=== PATIENT | male | born 1955 | race Caucasian/White ===

== ENCOUNTER → 2016-08-13 | Outpatient (CLI) | payer OTHER ==
[~2016-08-13] MED LIST: ASPI-496 PO; CHONDROITIN PO; FISH OIL PO; LORA10TA72 PO; MULT-412 PO; VITAMIN C PO
[2016-08-13 16:45] LABS: HEMOGLOBIN 16.3 g/dL (13.7-18.0)
[2016-08-13 16:57] LABS: ASPARTATE AMINO TRANSFERASE 25 U/L (15-37); BLOOD UREA NITROGEN 22 mg/dL (7-18)
== END | disposition home or self-care (01) ==
LOC: STAR 15:53
PROVIDERS: ATTEND Urology
DX: Z01.818 Encounter for other preprocedural examination (principal); C61 Malignant neoplasm of prostate
CPT/HCPCS: 36415; 80053; 81003; 85025; 87086; 93005

== ENCOUNTER 2016-08-26 05:19 | Inpatient (IN) | payer OTHER ==
[2016-08-13 15:56] VITALS: BP 128/89
[~2016-08-26] VITALS: Ht 172.7 cm; Wt 78.0 kg
[2016-08-26] MEDS ORDERED: LACTATED RINGERS 1,000 ML IV SCH (06:06)
[2016-08-26] MEDS ORDERED: THROMBIN 5,000 UNIT VIAL TP ONE (07:22)
[2016-08-26] MEDS ORDERED: BUPIVACAINE/PF-EPI 0.25% 1:200K ONE (07:22)
[2016-08-26] MEDS ORDERED: MIDAZOLAM 1 MG/ML, 2ML ONE (07:23)
[2016-08-26] MEDS ORDERED: FENTANYL PF 250 MCG/5ML ONE (07:24)
[2016-08-26] MEDS ORDERED: HYDROmorphone 2 MG/ML, 1ML ONE (08:38)
[2016-08-26] MEDS ORDERED: ACETAMINOPHEN 325 MG TABLET PO PRN (09:30)
[2016-08-26] MEDS ORDERED: EPHEDRINE 50 MG/ML, 1ML IVPush PRN (09:30)
[2016-08-26] MEDS ORDERED: MEPERIDINE/PF 25MG/0.5ML IVPush PRN (09:30)
[2016-08-26] MEDS ORDERED: PROMETHAZINE 25 MG/ML, 1ML IV PRN (09:30)
[2016-08-26] MEDS ORDERED: HYDROmorphone 1 MG/ML, 1ML IV PRN (09:30)
[2016-08-26] MEDS ORDERED: METOCLOPRAMIDE 5 MG/ML, 2ML IV PRN (09:30)
[2016-08-26] MEDS ORDERED: LABETALOL 5MG/ML, 20ML IV PRN (09:30)
[2016-08-26] MEDS ORDERED: OXYcodone 5 MG/5 ML ORAL.SOL UDC PO PRN (09:30)
[2016-08-26] MEDS ORDERED: hydrALAzine 20 MG/ML, 1ML IV PRN (09:30)
[2016-08-26] MEDS ORDERED: FENTANYL PF 100 MCG/2ML IV PRN (09:30)
[2016-08-26] MEDS ORDERED: ONDANSETRON 2MG/ML, 2ML IVPush PRN (09:30)
[2016-08-26] MEDS ORDERED: FENTANYL PF 100 MCG/2ML ONE (11:58)
[2016-08-26] MEDS ORDERED: ADENOSINE 6 MG/2 ML ONE (12:07)
[2016-08-26] MEDS ORDERED: DILTIAZEM 5 MG/ML, 5ML ONE (12:12)
[2016-08-26] MEDS ORDERED: ESMOLOL 100 MG/10 ML ONE ×2 (12:17→16:22)
[2016-08-26] MEDS ORDERED: AMIODARONE 50 MG/ML, 3ML ONE (12:37)
[2016-08-26] MEDS ORDERED: FILTER 0.22 MICRON FOR AMIODARONE IV PRN (13:00)
[2016-08-26] MEDS ORDERED: AMIODARONE 900 MG in DEXTROSE 5% 482 ML IV PRN (13:00)
[2016-08-26] MEDS ORDERED: MAGNESIUM SULFATE PMX 2GM/50ML 50 ML IV ONE (14:00)
[2016-08-26] MEDS ORDERED: ONDANSETRON 2MG/ML, 2ML IV PRN (15:30)
[2016-08-26] MEDS ORDERED: SODIUM CHLORIDE 0.9% 500 ML IV PRN (15:30)
[2016-08-26] MEDS ORDERED: KETOROLAC 30 MG/1 ML ONE (16:22)
[2016-08-26] MEDS ORDERED: ONDANSETRON 2MG/ML, 2ML ONE (16:22)
[2016-08-26] MEDS ORDERED: EPHEDRINE 50 MG/ML, 1ML ONE (16:22)
[2016-08-26] MEDS ORDERED: DEXAMETHASONE 4 MG/ML, 1ML ONE (16:22)
[2016-08-26] MEDS ORDERED: CEFAZOLIN 1,000 MG ONE ×2 (16:22)
[2016-08-26] MEDS ORDERED: PROPOFOL 10 MG/ML, 20ML ONE (16:22)
[2016-08-26] MEDS: D5%-0.45NACL+KCL 20MEQ 1,000 ML IV SCH (16:57)
[2016-08-26 19:23] VITALS: BP 119/82
[2016-08-26] MEDS: CEFAZOLIN PMX 1GM/50ML 50 ML IVPB SCH (20:46)
[2016-08-27 01:36] VITALS: BP 109/66
[2016-08-27] MEDS: D5%-0.45NACL+KCL 20MEQ 1,000 ML IV SCH (03:37)
[2016-08-27] MEDS: CEFAZOLIN PMX 1GM/50ML 50 ML IVPB SCH (05:08)
[2016-08-27] MEDS ORDERED: ENOXAPARIN 40 MG/0.4 ML SQ SCH (08:00)
[2016-08-27] MEDS ORDERED: OXYcodone/APAP 5/325MG TABLET PO PRN (08:30)
[2016-08-27] MEDS ORDERED: AMIODARONE 200 MG TABLET PO SCH (09:00)
[2016-08-27 09:14] VITALS: BP 132/77
[2016-08-27 09:36] LABS: ASPARTATE AMINO TRANSFERASE 15 U/L (15-37); BLOOD UREA NITROGEN 9 mg/dL (7-18)
[2016-08-27] MEDS ORDERED: AMIO400T4 PO (16:55)
[2016-08-27] MEDS ORDERED: OXYC-302 PO (16:56)
[2016-08-27] MEDS ORDERED: DOCU-30 PO (16:57)
== END 2016-08-27 17:10 | disposition home or self-care (01) | DRG 707 ==
LOC: ORIP 05:19 → 5SO 14:39 → DCLOUNGE 08-27 16:54
PROVIDERS: ADMIT Urology; ATTEND Urology
PROC: 8E0W4CZ Robotic Assisted Procedure of Trunk Region, Percutaneous Endoscopic Approach (ICD-10-PCS; 2016-08-26)
PROC: 5A2204Z Restoration of Cardiac Rhythm, Single (ICD-10-PCS; 2016-08-26)
PROC: 0VT04ZZ Resection of Prostate, Percutaneous Endoscopic Approach (ICD-10-PCS; principal; 2016-08-26 07:30)
DX: C61 Malignant neoplasm of prostate (principal); D68.69 Other thrombophilia; I48.91 Unspecified atrial fibrillation; D75.1 Secondary polycythemia; E83.119 Hemochromatosis, unspecified; I10 Essential (primary) hypertension
CPT/HCPCS: 36415; 80053; 85025; 86850; 86900; 88309; 93005; 93306; J0690; J1100; J1170; J1885; J2250; J2270; J2405; J2704; J3010; J0282; J3475; J3480; J7060; J7120

== ENCOUNTER → 2016-09-02 | Outpatient (CLI) | payer OTHER ==
[~2016-09-02] MED LIST changes: +AMIO400T4 PO; +DOCU-30 PO; +OXYC-302 PO
== END | disposition home or self-care (01) ==
LOC: RAD 13:38
PROVIDERS: ATTEND Urology
DX: C61 Malignant neoplasm of prostate (principal)
CPT/HCPCS: 74430

== ENCOUNTER 2019-07-01 07:33 | Emergency (ER) | payer BC, OTHER ==
[~2019-07-01] VITALS: Ht 172.7 cm; Wt 78.7 kg
[~2019-07-01 07:33] MED LIST changes: -AMIO400T4 PO; +AMIO400T5 PO; +DOCU-131 PO; -DOCU-30 PO
--- NOTE | 2019-07-01 08:08 | NUR ---
first contact with pt. pt states "constant irregular heartbeat for the last couple of days", hx of same after a-fib post-op, denies cp or sob. pt's aox4. resps even and unlabored. a-fib rate 60-70's on filter filler at this time. all monitors in place. call light within reach. edmd at bedside to evaluate at this time.
[2019-07-01 08:20] LABS: BASOPHILS # (AUTO) 0.03 x10^3/uL (0-0.1); BASOPHILS % (AUTO) 1 % (0-1); EOSINOPHILS % (AUTO) 5 % (1-7); LYMPHOCYTES % (AUTO) 24 % (22-44); MD NO; MEAN CORPUSCULAR HEMOGLOBIN 32.5 pg (27.5-34.5); MEAN CORPUSCULAR HGB CONC 34.6 g/dL (33.2-36.2); MEAN CORPUSCULAR VOLUME 93.9 fL (81-97); MEAN PLATELET VOLUME 7.3 fL (7.4-10.4); MONOCYTES # (AUTO) 0.34 x10^3/uL (0.2-0.8); MONOCYTES % (AUTO) 5 % (2-9); NEUTROPHILS # (AUTO) 4.09 x10^3/uL (1.8-6.8); NEUTROPHILS % (AUTO) 65 % (42-75); PLATELET COUNT 354 x10^3/uL (130-400); RED BLOOD COUNT 5.17 x10^6/uL (4.38-5.82); RED CELL DISTRIBUTION WIDTH 13.2 % (9.4-14.8)
[2019-07-01 08:31] LABS: ALBUMIN 3.9 g/dL (3.4-5.0); ANION GAP 5 mmol/L (5-15); CALCIUM 9.6 mg/dL (8.5-10.1); CHLORIDE 111 mmol/L (98-107); CREATININE 1.01 mg/dL (0.7-1.3)
[2019-07-01 08:35] LABS: TROPONIN I < 0.015 ng/mL (0.000-0.045)
[2019-07-01 08:54] VITALS: BP 131/78
--- NOTE | 2019-07-01 08:54 | NUR ---
PT RESTING IN [facility]. PT'S AOX4. RESPS EVEN AND UNLABORED. PT DENIES ANY NEEDS AND CONCERNS AT THIS TIME.
--- NOTE | 2019-07-01 09:23 | NUR ---
edmd at bedside to explain all results at this time.
--- NOTE | 2019-07-01 09:41 | NUR ---
Patient given discharge instructions and they have confirmed that they understand the instructions. Patient ambulatory with steady gait.
== END 2019-07-01 09:42 | disposition home or self-care (01) ==
LOC: ED 08:45
DX: R00.2 Palpitations (principal); I48.91 Unspecified atrial fibrillation
CPT/HCPCS: 36415; 71045; 80048; 82040; 83735; 84443; 84484; 85025; 93005; 99285

== ENCOUNTER 2019-07-06 08:16 | Emergency (ER) | payer BC ==
[~2019-07-06] VITALS: Ht 172.7 cm; Wt 77.0 kg
--- NOTE | 2019-07-06 09:06 | NUR ---
MD Delgado at bedside to assess pt
[2019-07-06] MEDS ORDERED: LORazepam 1MG TABLET ONE (09:16)
[2019-07-06] MEDS ORDERED: MAALOX/HYOSCYAMINE/LIDOCAINE 45 ML BTL ONE (09:16)
[2019-07-06 09:20] LABS: ANION GAP 5 mmol/L (5-15); CALCIUM 9.3 mg/dL (8.5-10.1); CHLORIDE 112 mmol/L (98-107)
--- NOTE | 2019-07-06 09:22 | NUR ---
Pt to Xray in NAD
[2019-07-06 09:27] LABS: TROPONIN I < 0.015 ng/mL (0.000-0.045)
[2019-07-06] MEDS ORDERED: LORazepam 1MG TABLET PO ONE (09:30)
[2019-07-06] MEDS ORDERED: MAALOX/HYOSCYAMINE/LIDOCAINE 45 ML BTL PO ONE (09:30)
[2019-07-06 12:19] VITALS: BP 124/85
== END 2019-07-06 12:21 | disposition home or self-care (01) ==
LOC: ED 08:55
DX: R00.2 Palpitations (principal); F41.1 Generalized anxiety disorder; I25.2 Old myocardial infarction; I49.1 Atrial premature depolarization
CPT/HCPCS: 36415; 74021; 80048; 84484; 93005; 99285

== ENCOUNTER 2019-09-25 08:46 | Outpatient (CLI) | payer BC | END 2019-09-25 23:59 | disposition home or self-care (01) | LOC: CFH 08:46 | PROVIDERS: ATTEND Internal Medicine Gastroenterology | DX: R10.13 Epigastric pain (principal) | CPT/HCPCS: 76705 ==

== ENCOUNTER 2019-12-18 14:02 | Outpatient (CLI) | payer BC | END 2019-12-18 23:59 | disposition home or self-care (01) | LOC: STAR 14:02 | PROVIDERS: ATTEND Anesthesiology | DX: R74.8 Abnormal levels of other serum enzymes (principal); K52.9 Noninfective gastroenteritis and colitis, unspecified; R07.89 Other chest pain; I48.0 Paroxysmal atrial fibrillation; Z68.25 Body mass index [BMI] 25.0-25.9, adult; Z80.0 Family history of malignant neoplasm of digestive organs | CPT/HCPCS: 36415; 87635; 93005 ==

== ENCOUNTER 2020-02-05 09:37 | Day surgery (SDC) | payer BC ==
[~2020-02-05] VITALS: Ht 172.7 cm; Wt 75.1 kg
[2020-02-05 09:58] VITALS: BP 144/84
[2020-02-05] MEDS ORDERED: CHLORHEXIDINE 15 ML UDC MM ONE (10:00)
[2020-02-05] MEDS ORDERED: LACTATED RINGERS 1,000 ML IV SCH (10:00)
[2020-02-05] MEDS ORDERED: L.AC1CAP6 PO (10:05)
[2020-02-05] MEDS ORDERED: GARL200T PO (10:05)
[2020-02-05] MEDS ORDERED: CHLORHEXIDINE 15 ML UDC ONE (10:08)
[2020-02-05] MEDS ORDERED: FENTANYL PF 100 MCG/2ML ONE ×2 (11:18→15:18)
[2020-02-05] MEDS ORDERED: MIDAZOLAM 1 MG/ML, 2ML ONE (11:18)
[2020-02-05] MEDS ORDERED: EPINEPHRINE 1 MG/ML, 1ML ONE (13:22)
[2020-02-05] MEDS ORDERED: BUPIVACAINE/PF 0.5% ONE (13:22)
[2020-02-05] MEDS ORDERED: LORazepam 2 MG/ML, 1ML IVPush PRN (13:30)
[2020-02-05] MEDS ORDERED: LABETALOL 5MG/ML, 20ML IV PRN (13:30)
[2020-02-05] MEDS ORDERED: hydrALAzine 20 MG/ML, 1ML IV PRN (13:30)
[2020-02-05] MEDS ORDERED: PROMETHAZINE 25 MG/ML, 1ML IVPush PRN (13:30)
[2020-02-05] MEDS ORDERED: HYDROmorphone 1 MG/ML, 1ML INJ IVPush PRN (13:30)
[2020-02-05] MEDS ORDERED: ACETAMINOPHEN 325 MG TABLET PO PRN (13:30)
[2020-02-05] MEDS ORDERED: METHOCARBAMOL 1,000 MG in DEXTROSE 5% 100 ML IV PRN (13:30)
[2020-02-05] MEDS ORDERED: ALBUTEROL SULFATE 2.5 MG/3 ML NPPB PRN (13:30)
[2020-02-05] MEDS ORDERED: OXYcodone 5 MG/5 ML ORAL.SOL UDC PO PRN (13:30)
[2020-02-05] MEDS ORDERED: MEPERIDINE/PF 25MG/0.5ML IVPush PRN (13:30)
[2020-02-05] MEDS ORDERED: KETOROLAC 30 MG/1 ML ONE (13:34)
[2020-02-05] MEDS ORDERED: SUGAMMADEX 200 MG/2 ML IVPush ONE (13:34)
[2020-02-05] MEDS: FENTANYL PF 100 MCG/2ML IV PRN ×2 (13:38→15:24)
[2020-02-05] MEDS ORDERED: GLYCOPYRROLATE 0.2MG/1ML, 5ML ONE (14:55)
[2020-02-05] MEDS ORDERED: CEFAZOLIN 1,000 MG ONE (14:55)
[2020-02-05] MEDS ORDERED: ROCURONIUM 10MG/ML,5ML ONE (14:55)
[2020-02-05] MEDS ORDERED: NEOSTIGMINE 1 MG/ML, 10ML ONE (14:55)
[2020-02-05] MEDS ORDERED: PROPOFOL 10 MG/ML, 20ML ONE (14:55)
[2020-02-05] MEDS ORDERED: SUCCINYLCHOLINE 20 MG/ML, 10ML ONE (14:55)
[2020-02-05] MEDS ORDERED: DEXAMETHASONE 4 MG/ML, 1ML ONE (14:55)
[2020-02-05] MEDS ORDERED: ONDANSETRON 2MG/ML, 2ML ONE (14:55)
[2020-02-05] MEDS ORDERED: ACETAMINOPHEN 650 MG/20.3 ML UDC ONE (15:18)
[2020-02-05] MEDS ORDERED: OXYcodone 5 MG/5 ML ORAL.SOL UDC ONE (15:19)
== END 2020-02-05 16:50 | disposition home or self-care (01) ==
LOC: OUT 09:37
PROVIDERS: ATTEND Surgery
DX: K81.1 Chronic cholecystitis (principal); Z20.828 Contact with and (suspected) exposure to other viral communicable diseases; K43.2 Incisional hernia without obstruction or gangrene; K82.8 Other specified diseases of gallbladder; K85.10 Biliary acute pancreatitis without necrosis or infection; Z85.46 Personal history of malignant neoplasm of prostate; Z98.890 Other specified postprocedural states
CPT/HCPCS: 36415; 47562; 49560; 87635; 88304; J0171; J0330; J0690; J1100; J1885; J2250; J2405; J2704; J2710; J3010; J7120